=== PATIENT | female | born 1985 | race Caucasian/White ===

== ENCOUNTER 2019-06-13 19:55 | Emergency (ER) | payer OTHER ==
[2019-06-13] MEDS ORDERED: ONDANSETRON 4 MG/2 ML VIAL IVPUSH ONE (20:05)
[2019-06-13] MEDS ORDERED: MECLIZINE HCL 25 MG TABLET (FP) PO ONE (20:05)
[2019-06-13] MEDS ORDERED: SODIUM CHLORIDE 1,000 ML IV STA (20:05)
[2019-06-13 20:07] VITALS: TEMP 98.4; BMI 29.2
--- NOTE | 2019-06-13 20:08 | PDOC ---
Rapid Medical Evaluation Time Seen by Provider: 06/13/19 20:03 Medical Evaluation: 06/13/19 20:06 Pt c/o: dizziness upon awakening this am, feels as if the room is spinning, worse with movement, denies hx vertigo, fever, recent dental, ear or sinus infection, hx gastric sleeve 12/08/18 Pt on brief exam: vss, lcta, [place] Pt ordered for: labs, ekg, ivf, zofran and head ct Pt to proceed to the ED Discharge Disposition - Diagnosis Dizziness - Referrals - Patient Instructions - Post Discharge Activity
[2019-06-13] MEDS ORDERED: ONDANSETRON 4 MG/2 ML VIAL ONE (21:02)
[2019-06-13] MEDS ORDERED: MECLIZINE HCL 25 MG TABLET (FP) ONE (21:02)
--- NOTE | 2019-06-13 21:26 | PDOC ---
History of Present Illness <Bijan Bar - Last Filed: 06/13/19 22:18> - General History Source: Patient Exam Limitations: No Limitations - History of Present Illness Initial Comments: 06/13/19 21:13 HISTORY OF PRESENT ILLNESS: This is a 33-year-old woman with past medical history of asthma, cholecystectomy (01/28), gastric sleeve 11/28 complicated by incisional hematoma presents to the emergency department for evaluation of 1 week of dizziness. Patient reports he had a similar episode proximal he 2 weeks ago after visiting her gastric surgeon who gave her some normal saline the patient had felt better. Over the past week she has had progressive worsening of room spinning dizziness progressing to the point where she has had 4 episodes of vomiting today. Patient reports earlier today she had sudden onset worsening dizziness which required her to hold onto nearby furniture to help regain her balance. During this episode patient noted palpitations no fluttering in her chest. Patient reports vomit was clear liquid after she was drinking tea. Patient also reports having right upper quadrant tenderness which has been worsening after she eats. She denies any headaches, neck pain, chest pain, shortness of breath. Patient reports having otitis media 2 months ago which was treated with amoxicillin. No recent travel or sick contacts. PAST MEDICAL HISTORY: See HPI SURGICAL HISTORY: See HPI ALLERGIES: IV contrast-> hives REVIEW OF SYSTEMS General/Constitutional: Denies fever or chills. Denies weakness, weight change. HEENT: Denies change in vision. Denies ear pain or discharge. Denies sore throat. Cardiovascular: Denies chest pain or shortness of breath. Respiratory: Denies cough, wheezing, or hemoptysis. Gastrointestinal: See HPI Genitourinary: Denies dysuria, frequency, or change in urination. Musculoskeletal: Denies joint or muscle swelling or pain. Denies neck or back pain. Skin and breasts: Denies rash or easy bruising. Neurologic: See HPI Psychiatric: Denies depression or anxiety. Endocrine: Denies increased thirst. Denies abnormal weight change. Hematologic/Lymphatic: Denies anemia, easy bleeding, or history of blood clots. Allergic/Immunologic: Denies hives or skin allergy. Denies latex allergy. PHYSICAL EXAM General Appearance: Well-appearing, appropriately dressed. No apparent distress , no intoxication. HEENT: EOMI- no nystagmus noted. ALIA normal ENT inspection, normal voice, pharynx normal. No conjunctival pallor. No photophobia, scleral icterus. Right TM with scarring present from the 8:00 to 10 o'clock position. Retractions noted bilaterally. No effusion or erythema present. Neck: Supple. Trachea midline. No tenderness, rigidity, carotid bruit, stridor , lymphadenopathy, or thyromegaly. Respiratory/Chest: Lungs CTAB. No shortness of breath, chest tenderness, respiratory distress, accessory muscle use. No crackles, rales, rhonchi, stridor , wheezing, dullness. Cardiovascular: RRR. S1, S2. No JVD, murmur, bradycardia, tachycardia. Vascular Pulses: Dorsalis-Pedis (R): 2+, Dorsalis-Pedis (L): 2+ Gastrointestinal/Abdominal: Normal bowel sounds. Abdomen soft, non-distended. Right upper quadrant tenderness with guarding. No organomegaly, pulsatile mass, hernia, hepatomegaly, splenomegaly. Lymphatic: No adenopathy, tenderness. Musculoskeletal/Extremities: Normal inspection. FROM of all extremities, normal capillary refill. Pelvis Stable. No CVA tenderness. No tenderness to extremities, pedal edema, swelling, erythema or deformity. Negative Homans sign. Integumentary: Appropriate color, dry, warm. No cyanosis, erythema, jaundice or rash Neurologic: solution analyst II-XII intact. Fully oriented, alert. Appropriate mood/affect. Motor strength 5/5. No appreciable EOM palsy, facial droop or sensory deficit. Prince-Hallpike without nystagmus but increased dizziness with the change of position. [id number] testing is unremarkable. Able to perform rapid alternating movements without difficulty. Gait is slow but steady. No ataxia present. 06/13/19 21:46 <Terrence Hough - Last Filed: 06/14/19 01:40> - General Chief Complaint: Lightheaded Stated Complaint: FATIGUE/DIZZINESS/VOMITING Time Seen by Provider: 06/13/19 20:03 Past History <Bijan Bar - Last Filed: 06/13/19 22:18> - Past Medical History Asthma: Yes COPD: No - Surgical History GI Surgery: Yes (Gasttric sleeve 12/08/2018) - Psycho Social/Smoking Cessation Hx Smoking History: Never smoked <Terrence Hough - Last Filed: 06/14/19 01:40> - Past Medical History Allergies/Adverse Reactions: Allergies Allergy/AdvReac Type Severity Reaction Status Date / Time Iodinated Contrast Media Allergy Verified 06/13/19 20:08 Home Medications: Ambulatory Orders Diazepam [Valium] 2 mg PO TID PRN #5 tablet MDD 3 06/14/19 Meclizine HCl [Antivert -] 50 mg PO TID #42 tablet 06/14/19 *Physical Exam - Vital Signs Last Vital Signs Temp Pulse Resp BP Pulse Ox 98.4 F 95 H 121/88 99 06/13/19 20:02 06/13/19 20:02 06/13/19 20:02 06/13/19 20:02 06/13/19 20:02 <Bijan Bar - Last Filed: 06/13/19 22:18> - Vital Signs Last Vital Signs Temp Pulse Resp BP Pulse Ox 98.4 F 95 H 121/88 99 06/13/19 20:02 06/13/19 20:02 06/13/19 20:02 06/13/19 20:02 06/13/19 20:02 <Terrence Hough - Last Filed: 06/14/19 01:40> Heart Score/ECG Review #1 ECG reviewed & interpreted by me at: 22:05 General ECG Interpretation: Sinus Rhythm, Normal Rate (90), Normal Intervals ( qtc 425), No acute ischemic changes <Bijan Bar - Last Filed: 06/13/19 22:18> ED Treatment Course - LABORATORY CBC & Chemistry Diagram: 06/13/19 21:31 06/13/19 21:40 - ADDITIONAL ORDERS Additional order review: 06/13/19 21:31 RBC 4.82 MCV 89.2 MCHC 33.4 RDW 13.5 MPV 8.2 Neutrophils % 58.5 Lymphocytes % 30.9 Monocytes % 8.0 Eosinophils % 1.7 Basophils % 0.9 - Medications Given in the ED: ED Medications Discontinued Medications Generic Name Dose Route Start Last Admin Trade Name Freq PRN Reason Stop Dose Admin Diazepam 2 mg 06/13/19 21:48 06/13/19 22:10 Valium - PO 06/13/19 21:49 2 mg ONCE ONE Administration Sodium Chloride 1,000 mls @ 1,000 mls/hr 06/13/19 20:05 06/13/19 21:52 Normal Saline - IV 06/13/19 21:04 1,000 mls/hr ASDIR STA Administration Meclizine HCl 25 mg 06/13/19 20:05 06/13/19 21:21 Antivert - PO 06/13/19 20:06 25 mg ONCE ONE Administration Ondansetron HCl 4 mg 06/13/19 20:05 06/13/19 21:52 Zofran Injection IVPUSH 06/13/19 20:06 4 mg ONCE ONE Administration <Bijan Bar - Last Filed: 06/13/19 22:18> - LABORATORY CBC & Chemistry Diagram: 06/13/19 21:31 06/13/19 21:40 <Terrence Hough - Last Filed: 06/14/19 01:40> Medical Decision Making - Medical Decision Making 06/13/19 21:26 A/P: 33-year-old woman with 1 week of dizziness today with vomiting Differential diagnosis includes but is not limited to-arrhythmia, CVA, BPPV, dehydration, occult infection, left leg abnormalities, neoplasm Less likely CVA given absence of central symptoms. EKG CMP, CBC, cardiac profile, lipase Urinalysis, urine , urine culture Head CT Zofran 4 mg IV push Meclizine 25 mg orally now Normal saline 1 L IV bolus Reassess 06/13/19 22:31 06/14/19 00:32 CT scan is read by imaging on-call: No acute brain parenchymal abnormality. No hemorrhage, or acute territorial infarct. Clear visualized paranasal sinuses. Visualized mastoid air cells clear. CBC is unremarkable Chemistries were unremarkable with an initial troponin of less than 0.02 Urinalysis is unremarkable UPT negative Patient reports her dizziness has resolved and is the best she has felt since onset 1 week ago. Patient no longer feels nauseous. I will discharge the patient home with prescriptions for Valium and meclizine. I discussed the physical exam findings, ancillary test results and final diagnoses with the patient. I answered all of the patient's questions. The patient was satisfied with the care received and felt comfortable with the discharge plan and treatment plan. The patient will call their primary care physician within 24 hours to arrange follow-up and will return to the Emergency Department with any new, persistent or worsening symptoms. 06/14/19 00:45 06/14/19 01:38 Patient called and stated she was unable to fill her prescriptions at [facility]. Requesting change in pharmacy. 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 Valium and meclizine represcribed to the patient's preferred pharmacy. <Terrence Hough - Last Filed: 06/14/19 01:40> Discharge <Bijan Bar - Last Filed: 06/13/19 22:18> - Discharge Information Problems reviewed: Yes - Admission No <Terrence Hough - Last Filed: 06/14/19 01:40> - Discharge Information Clinical Impression/Diagnosis: BPPV (benign paroxysmal positional vertigo) Qualifiers: Laterality: unspecified laterality Qualified Code(s): H81.10 - Benign paroxysmal vertigo, unspecified ear Condition: Fair Disposition: HOME - Additional Discharge Information Prescriptions: Diazepam [Valium] 2 mg PO TID PRN #5 tablet MDD 3 PRN Reason: Vertigo Meclizine HCl [Antivert -] 50 mg PO TID #42 tablet - Follow up/Referral Referrals: ON STAFF,NOT [Primary Care Provider] - - Patient Discharge Instructions Additional Instructions: Take meclizine 50 mg every 8 hours as needed for dizziness May take Valium 2 mg for dizziness if meclizine does not work. Keep well-hydrated. Your emergency department visit is not complete until you follow-up with your primary doctor. You have been given a referral for learning and development associate for reevaluation of vertigo. Return to the emergency department for any new or worsening symptoms. Thank you very much for choosing us to provide your emergent health care needs. - Post Discharge Activity
[2019-06-13] MEDS ORDERED: diazePAM 2 MG TABLET PO ONE (21:48)
[2019-06-13] MEDS ORDERED: diazePAM 2 MG TABLET ONE (21:55)
[2019-06-13 22:12] LABS: BASO % 0.9 % (0-2.0); EOS % 1.7 % (0-4.5); HEMOGLOBIN 14.3 GM/dL (10.7-15.3); LYMPH % 30.9 % (8-40); MCH 29.8 pg (25.7-33.7); MCHC 33.4 g/dl (32.0-36.0); MEAN CELL VOLUME 89.2 fl (80-96); MEAN PLT VOLUME 8.2 fl (7.5-11.1); NEUT % 58.5 % (42.8-82.8); PLATELET COUNT 301 K/MM3 (134-434); RBC 4.82 M/mm3 (3.60-5.2); RDW 13.5 % (11.6-15.6); WHITE BLOOD COUNT 9.3 K/mm3 (4.0-10.0)
[2019-06-13 22:27] LABS: ALBUMIN 4.6 g/dl (3.4-5.0); BILIRUBIN,TOTAL 0.4 mg/dL (0.2-1); BLOOD UREA NITROGEN 16.2 mg/dL (7-18); CALCIUM 9.9 mg/dL (8.5-10.1); CREATININE 0.8 mg/dL (0.55-1.3); POTASSIUM 4.5 mmol/L (3.5-5.1); TOT PROT 7.6 g/dl (6.4-8.2)
[2019-06-13 22:34] LABS: PH,URINE 6.5 (5.0-8.0); URINE APPEARANCE CLEAR; URINE BILIRUBIN NEGATIVE (NEGATIVE); URINE COLOR YELLOW; URINE GLUCOSE (UA) NEGATIVE (NEGATIVE); URINE KETONE NEGATIVE (NEGATIVE); URINE LEUK ESTERASE NEGATIVE (NEGATIVE); URINE NITRITE NEGATIVE (NEGATIVE); URINE PROTEIN NEGATIVE (NEGATIVE); URINE UROBILINOGEN 0.2 mg/dL (0.2-1.0)
[2019-06-14 01:01] VITALS: BP 118/76; PULSE 93
--- NOTE | 2019-06-16 10:56 | EKG ---
Test Reason : Blood Pressure : / mmHG Vent. Rate : 090 BPM Atrial Rate : 090 BPM P-R Int : 188 ms QRS Dur : 078 ms QT Int : 348 ms P-R-T Axes : 062 018 027 degrees QTc Int : 425 ms NORMAL SINUS RHYTHM NORMAL ECG NO PREVIOUS ECGS AVAILABLE Confirmed by STEFANY GARAY MD ([id number]) on 06/16/2019 10:55:58 AM Referred By: Confirmed By:STEFANY GARAY MD
== END 2019-06-14 01:04 | disposition home or self-care (01) ==
LOC: JER 19:55
PROC: 3E033GC Introduction of Other Therapeutic Substance into Peripheral Vein, Percutaneous Approach (ICD-10-PCS; principal; 2019-06-13)
DX: H81.10 Benign paroxysmal vertigo, unspecified ear (principal); Z90.49 Acquired absence of other specified parts of digestive tract; Z98.84 Bariatric surgery status; Z91.041 Radiographic dye allergy status
CPT/HCPCS: 36415; 70450-TC; 80053; 81003; 82550; 83690; 84484; 84703; 85025; 93005; 93010; 99284-25; J7030